=== PATIENT | female | born 1985 | race Caucasian/White ===

== ENCOUNTER 2017-03-18 19:03 | Emergency (ER) | payer OTHER ==
[2017-03-18 19:11] VITALS: BP 122/62; PULSE 71; RESP 16; TEMP 97.6; O2SAT 100
--- NOTE | 2017-03-18 19:39 | ED PDOC ---
HPI: Female Pain Time Seen by Provider: 03/18/17 19:38 Chief Complaint (Nursing): Abdominal Pain Chief Complaint (Provider): dysuria History Per: Patient History/Exam Limitations: no limitations Onset/Duration Of Symptoms: Days (7) Current Symptoms Are (Timing): Still Present Quality Of Discomfort: Cramping Associated Symptoms: Urinary Symptoms (freq/urgency/back pain.suprapubic cramping. ). denies: Fever, Chills, Nausea, Vomiting, Diarrhea, Loss Of Appetite, Back Pain, Chest Pain, Constipation Abnormal Vaginal Bleeding: No Past Medical History Reviewed: Historical Data, Nursing Documentation, Vital Signs Vital Signs: Last Vital Signs Temp 97.6 F 03/18/17 19:09 Pulse 71 03/18/17 19:09 Resp 16 03/18/17 19:09 BP 122/62 03/18/17 19:09 Pulse Ox 100 03/18/17 19:09 - Medical History PMH: Denies: Chronic Kidney Disease - Family History Family History: States: Unknown Family Hx - Immunization History Hx Tetanus Toxoid Vaccination: No Hx Influenza Vaccination: No Hx Pneumococcal Vaccination: No - Home Medications Home Medications: Ambulatory Orders Medication Instructions Recorded Tri-Linyah 35 Mcg-0.25 mg 1 tab PO DAILY 03/17/15 metroNIDAZOLE [Flagyl] 500 mg PO BID #14 tab 03/17/15 Ciprofloxacin [Cipro] 250 mg PO BID #6 tab 03/18/17 - Allergies Allergies/Adverse Reactions: Allergies Allergy/AdvReac Type Severity Reaction Status Date / Time No Known Allergies Allergy Verified 11/14/13 08:40 Review of Systems ROS Statement: Except As Marked, All Systems Reviewed And Found Negative Constitutional: Negative for: Fever, Chills Physical Exam - Reviewed Nursing Documentation Reviewed: Yes Vital Signs Reviewed: Yes - Physical Exam Appears: Positive for: Well, Non-toxic, No Acute Distress Skin: Positive for: Normal Color, Warm, DRY Cardiovascular/Chest: Positive for: Regular Rate, Rhythm Respiratory: Positive for: CNT, Normal Breath Sounds Gastrointestinal/Abdominal: Positive for: Bowel Sounds, Soft, Tenderness ( suprapubic) Back: Positive for: Normal Inspection. Negative for: L CVA Tenderness, R CVA Tenderness Extremity: Positive for: Normal ROM Neurologic/Psych: Positive for: Alert, Oriented - Laboratory Results Urine dip results: Negative for: Leukocyte Esterase, Blood, Nitrate, Ketones, Glucose, Bilirubin, Protein - ECG O2 Sat by Pulse Oximetry: 100 Medical Decision Making Medical Decision Making: pt with symptomatic uti will tx with cipro and f/u with obgyn Disposition - Clinical Impression Clinical Impression: Urinary tract infection - Patient ED Disposition Is Patient to be Admitted: No Counseled Patient/Family Regarding: Studies Performed, Diagnosis, Need For Followup, Rx Given - Disposition Disposition: Routine/Home Disposition Time: 19:58 Condition: STABLE Prescriptions: Ciprofloxacin [Cipro] 250 mg PO BID #6 tab Instructions: Urinary Tract Infection in Women (ED) Forms: [employer] (Pashto)
== END 2017-03-18 19:57 | disposition home or self-care (01) ==
LOC: H.ER 19:03
DX: N39.0 Urinary tract infection, site not specified (principal)

== ENCOUNTER 2017-10-08 09:36 | Emergency (ER) | payer OTHER ==
[2017-10-08 09:38] VITALS: BMI 36.0
[2017-10-08] MEDS: Sodium Chloride 0.9% 1,000 ML IV STA (10:10)
--- NOTE | 2017-10-08 10:13 | ED PDOC ---
HPI: Abdomen Time Seen by Provider: 10/08/17 09:47 Chief Complaint (Nursing): Abdominal Pain Chief Complaint (Provider): Suprapubic pain on/off for 6 months History Per: Patient History/Exam Limitations: no limitations Onset/Duration Of Symptoms: Days Outside of [place] travel?: No Current Symptoms Are (Timing): Still Present Additional Complaint(s): 32 yo female with no medical problems presents with lower abdominal pain on/off for 6 months. Pt reports pain lasting a few days every 2 months. 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 Pt states she has no change in bowel or N/v. Pt took motrin but states it does not help. Past Medical History Reviewed: Historical Data, Nursing Documentation, Vital Signs Vital Signs: Last Vital Signs Temp 98.4 F 10/08/17 09:39 Pulse 67 10/08/17 09:39 Resp 16 10/08/17 09:39 BP 106/68 10/08/17 09:39 Pulse Ox 99 10/08/17 10:34 - Medical History PMH: No Chronic Diseases Denies: Chronic Kidney Disease - Surgical History Surgical History: No Surg Hx - Family History Family History: States: Unknown Family Hx - Living Arrangements Living Arrangements: With Family - Social History Current smoker - smoking cessation education provided: No - Immunization History Hx Tetanus Toxoid Vaccination: No Hx Influenza Vaccination: No Hx Pneumococcal Vaccination: No - Home Medications Home Medications: Ambulatory Orders Medication Instructions Recorded Tri-Linyah 35 Mcg-0.25 mg 1 tab PO DAILY 03/17/15 metroNIDAZOLE [Flagyl] 500 mg PO BID #14 tab 03/17/15 Ciprofloxacin [Cipro] 250 mg PO BID #6 tab 03/18/17 Ciprofloxacin [Cipro] 500 mg PO BID #10 tab 10/08/17 - Allergies Allergies/Adverse Reactions: Allergies Allergy/AdvReac Type Severity Reaction Status Date / Time No Known Allergies Allergy Verified 11/14/13 08:40 Review of Systems ROS Statement: Except As Marked, All Systems Reviewed And Found Negative Constitutional: Negative for: Fever, Chills Gastrointestinal: Positive for: Abdominal Pain. Negative for: Nausea, Vomiting , Diarrhea Physical Exam - Reviewed Nursing Documentation Reviewed: Yes Vital Signs Reviewed: Yes - Physical Exam Appears: Positive for: Well, Non-toxic, No Acute Distress Head Exam: Positive for: ATRAUMATIC, NORMAL INSPECTION, NORMOCEPHALIC Skin: Positive for: Normal Color, Warm, DRY Eye Exam: Positive for: Normal appearance ENT: Positive for: Normal ENT Inspection Neck: Positive for: Normal, Painless ROM Cardiovascular/Chest: Positive for: Regular Rate, Rhythm Respiratory: Positive for: CNT, Normal Breath Sounds Gastrointestinal/Abdominal: Positive for: Normal Exam, Bowel Sounds, Soft. Negative for: Tenderness Back: Positive for: Normal Inspection Extremity: Positive for: Normal ROM Neurologic/Psych: Positive for: Alert, Oriented - Laboratory Results Result Diagrams: 10/08/17 10:10 10/08/17 10:10 - ECG O2 Sat by Pulse Oximetry: 99 Medical Decision Making Medical Decision Making: Small leuks on urine dip in ER. Order placed for U/A and urine culture. Labs normal. (+) leuks, blood in urine Disposition - Clinical Impression Clinical Impression: Urinary tract infection - Patient ED Disposition Is Patient to be Admitted: No Counseled Patient/Family Regarding: Need For Followup, Rx Given - Disposition Disposition: Routine/Home Disposition Time: 11:06 Condition: GOOD Prescriptions: Ciprofloxacin [Cipro] 500 mg PO BID #10 tab Instructions: Urinary Tract Infection, Adult (DC) Forms: [employer] (Omani), [facility] ED School/Work Excuse
[2017-10-08 10:35] LABS: ALB/GLOB RATIO 1.1 (1.0-2.1); ALBUMIN 3.9 g/dL (3.5-5.0); ALT/SGPT 36 U/L (9-52); AST/SGOT 24 U/L (14-36); BLOOD UREA NITROGEN 11 mg/dl (7-17); CALCIUM 8.7 mg/dL (8.4-10.2); GFR AFRICAN-AMERICAN > 60; GFR NON-AFRICAN AMERICAN > 60
[2017-10-08 10:37] LABS: HEMOGLOBIN 12.5 g/dL (12.0-16.0); MEAN CELL VOLUME 92.3 fl (81.0-99.0); MEAN CORPUSCULAR HGB CONC 32.5 g/dL (33.0-37.0); RBC 4.17 Mil/uL (3.80-5.20); WHITE BLOOD COUNT 7.3 K/uL (4.8-10.8)
[2017-10-08 10:57] LABS: SQUAMOUS EPITHIAL 5 /hpf (0-5); URINE BILIRUBIN NEGATIVE (NEGATIVE); URINE BLOOD NEGATIVE (NEGATIVE); URINE CLARITY CLOUDY (Clear); URINE COLOR YELLOW (YELLOW); URINE GLUCOSE (UA) NEG (Normal); URINE LEUKOCYTE ESTERASE MOD Leu/uL (Negative); URINE NITRATE NEGATIVE (NEGATIVE); URINE PROTEIN 30 mg/dL (NEGATIVE)
[2017-10-08 11:20] VITALS: BP 120/70; PULSE 74; RESP 20; TEMP 98.6; O2SAT 98
== END 2017-10-08 11:21 | disposition home or self-care (01) ==
LOC: H.ER 09:36
DX: N39.0 Urinary tract infection, site not specified (principal)
CPT/HCPCS: 80053; 81003; 85027; 87086; 87491; 87591; 96360; 99283; J7040

== ENCOUNTER 2018-10-22 19:27 | Emergency (ER) | payer OTHER ==
[2018-10-22 19:27] VITALS: BMI 36.0
[2018-10-22 20:00] VITALS: RESP 16; TEMP 98.5
[2018-10-22] MEDS ORDERED: Sodium Chloride 0.9% 1,000 ML IV STA (20:22)
[2018-10-22 20:54] LABS: BASO # 0.1 K/uL (0.0-0.2); BASO % 0.8 % (0.0-2.0); EOS # 0.1 K/uL (0.0-0.7); LYMPH # 2.5 K/uL (1.0-4.3); LYMPH % 28.9 % (20.0-40.0); MEAN CELL VOLUME 90.2 fl (81.0-99.0); MEAN CORPUSCULAR HEMOGLOBIN 29.8 pg (27.0-31.0); MEAN PLATELET VOLUME 10.1 fl (7.2-11.7); MONO # 0.6 K/uL (0.0-0.8); MONO % 7.1 % (0.0-10.0); NEUT # 5.4 K/uL (1.8-7.0); NEUT % 62.2 % (50.0-75.0); RBC 4.03 Mil/uL (3.80-5.20); RED CELL DISTRIBUTION WIDTH 12.8 % (11.5-14.5); WHITE BLOOD COUNT 8.7 K/uL (4.8-10.8)
--- NOTE | 2018-10-22 21:09 | ED PDOC ---
HPI: Abdomen Time Seen by Provider: 10/22/18 20:01 Chief Complaint (Nursing): Abdominal Pain Chief Complaint (Provider): Abdominal Pain History Per: Patient History/Exam Limitations: no limitations (x) Onset/Duration Of Symptoms: Days (x 5) Current Symptoms Are (Timing): Still Present Location Of Pain/Discomfort: Diffuse Quality Of Discomfort: "Pain" Associated Symptoms: Other (bloating) Additional Complaint(s): 33 year old female with no significant medical history presents to the ED with a bdominal pain associated with nausea, poor appetite and bloating for five days. She reports developing satiety very earlier when she attempts to eat and has been forcing herself to finish meals. Denies vomiting, diarrhea and fever. PMD: none provided Past Medical History Reviewed: Historical Data, Nursing Documentation, Vital Signs Vital Signs: Last Vital Signs Temp 98.5 F 10/22/18 19:56 Pulse 73 10/22/18 19:56 Resp 16 10/22/18 19:56 BP 125/80 10/22/18 19:56 Pulse Ox 99 10/22/18 19:56 - Medical History PMH: No Chronic Diseases Denies: Chronic Kidney Disease - Surgical History Surgical History: No Surg Hx - Family History Family History: States: Unknown Family Hx - Social History Current smoker - smoking cessation education provided: No Alcohol: None Drugs: Denies - Immunization History Hx Tetanus Toxoid Vaccination: No Hx Influenza Vaccination: No Hx Pneumococcal Vaccination: No - Home Medications Home Medications: Ambulatory Orders Medication Instructions Recorded Ciprofloxacin [Cipro] 1 tab PO BID #14 tab 08/14/18 - Allergies Allergies/Adverse Reactions: Allergies Allergy/AdvReac Type Severity Reaction Status Date / Time No Known Allergies Allergy Verified 08/14/18 09:34 Review of Systems ROS Statement: Except As Marked, All Systems Reviewed And Found Negative Constitutional: Negative for: Fever Gastrointestinal: Positive for: Nausea, Abdominal Pain, Other (abdominal bloating). Negative for: Vomiting, Diarrhea Physical Exam - Reviewed Nursing Documentation Reviewed: Yes Vital Signs Reviewed: Yes - Physical Exam Appears: Positive for: No Acute Distress (patient is obese), Uncomfortable Head Exam: Positive for: ATRAUMATIC, NORMAL INSPECTION, NORMOCEPHALIC Skin: Positive for: Normal Color, Warm, Dry Eye Exam: Positive for: EOMI, Normal appearance, PERRL Neck: Positive for: Normal, Painless ROM, Supple Cardiovascular/Chest: Positive for: Regular Rate, Rhythm. Negative for: Murmur Respiratory: Positive for: Normal Breath Sounds. Negative for: Wheezing, Respiratory Distress Gastrointestinal/Abdominal: Positive for: Soft, Tenderness (RUQ and epigastric tenderness). Negative for: Mass, Guarding, Rebound Back: Positive for: Normal Inspection. Negative for: L CVA Tenderness, R CVA Tenderness Extremity: Positive for: Normal ROM (x 4). Negative for: Deformity Neurological/Psych: Positive for: Awake, Alert, Normal Tone. Negative for: Motor/Sensory Deficits - Laboratory Results Result Diagrams: 10/22/18 20:47 10/22/18 20:47 - ECG O2 Sat by Pulse Oximetry: 99 (RA) Pulse Ox Interpretation: Normal Medical Decision Making Medical Decision Makin:22 Impression: 33 year old female with epigastric and RUQ pain Initial Plan: --Beta-HCG --CMP --CBC --Lipase --Urine preg --Urine dip --NS IV 1,000 mls --Pepcid 20 mg IVP --Toradol 30 mg IV --Zofran 4 mg IV --Abdomen US --UA 22:33 Abdomen US FINDINGS: LIVER: Within normal limits in size and echogenicity. No mass. GALLBLADDER: The gallbladder appears within normal limits. No gallbladder wall thickening or pericholecystic fluid. COMMON BILE DUCT: Within normal limits in size. PANCREAS: The visualized pancreas appears within normal limits. The distal pancreas is obscured by bowel gas. RIGHT KIDNEY: Unremarkable. Normal renal contours. No renal mass or calculus. No hydronephrosis. IMPRESSION: Unremarkable right upper quadrant ultrasound. 22:34 Labs reviewed and reveal positive result. Patient was made aware and informed that she was given Toradol which is contraindicated. However, notified that there is minimal risk due to single dosage. Will obtain OB transvaginal US. 00:13 Transvaginal US FINDINGS: GESTATION: See below. UTERUS: Uterus measures 7.8 x 5.7 x 6.3 cm and appears retroverted. CERVIX: Cervix measures 3.1 cm in length and appears closed. OVARIES: Unremarkable. No mass. FREE FLUID: No free fluid. MISCELLANEOUS: A gestational sac is present. Mean sac diameter measures 1.3 cm, compatible with an estimated ultrasound age of 5.4 weeks. A yolk sac is present. A pole is present. [place] rump length measures 0.2 cm compatible with an estimated ultrasound age of 5.5 weeks. heart motion is observed at 101 beats per minute. Right ovary measures 2.5 x 1.9 x 2.7 cm. Right ovary demonstrates a corpus luteum cyst measuring 1.1 cm. Left ovary measures 2.8 x 1.3 x 2.8 cm. Both ovaries demonstrate normal Doppler waveforms. IMPRESSION: 1. Single live intrauterine gestation of approximately 5.5 weeks. heart motion observed as described. 2. Additional findings as described above. 0038 Labs reviewed and reveal no significant abnormalities. US findings are as above. Diagnosis is abdominal pain in . Follow up with OB-scraper hand. Scribe Attestation: Documented by Taylor Castellon, acting as a scribe for Jose Santiago MD. Provider Scribe Attestation: All medical record entries made by the Scribe were at my direction and personally dictated by me. I have reviewed the chart and agree that the record accurately reflects my personal performance of the history, physical exam, medical decision making, and the department course for this patient. I have also personally directed, reviewed, and agree with the discharge instructions and disposition. Disposition - Clinical Impression Clinical Impression: Abdominal pain during - Patient ED Disposition Is Patient to be Admitted: No - Disposition Disposition: Routine/Home Disposition Time: 00:38 Condition: STABLE Instructions: Stomach Pain in Early Forms: [employer] (Azeri)
[2018-10-22 21:13] LABS: ALB/GLOB RATIO 1.2 (1.0-2.1); ALBUMIN 3.9 g/dL (3.5-5.0); ALT/SGPT 22 U/L (9-52); AST/SGOT 17 U/L (14-36); BLOOD UREA NITROGEN 11 mg/dl (7-17); CALCIUM 9.2 mg/dL (8.4-10.2); GFR NON-AFRICAN AMERICAN > 60; LIPASE 80 U/L (23-300)
[2018-10-22 21:21] LABS: SQUAMOUS EPITHIAL 7 /hpf (0-5); URINE BACTERIA RARE (<OCC); URINE BILIRUBIN NEGATIVE (NEGATIVE); URINE BLOOD NEGATIVE (NEGATIVE); URINE CLARITY CLOUDY (Clear); URINE COLOR YELLOW (YELLOW); URINE GLUCOSE (UA) NEG (NEGATIVE); URINE LEUKOCYTE ESTERASE MOD Leu/uL (Negative); URINE PROTEIN 30 mg/dL (NEGATIVE)
[2018-10-23 00:55] VITALS: BP 100/68; PULSE 76; O2SAT 98
--- NOTE | 2018-10-23 10:00 | US ---
Date of service: 10/22/2018 HISTORY: RUQ pain COMPARISON: None. TECHNIQUE: Sonographic evaluation of the right upper quadrant of the abdomen. FINDINGS: LIVER: Measures 15.4 cm in length. Normal echogenicity of the liver parenchyma. No mass. No intrahepatic bile duct dilatation. GALLBLADDER: Unremarkable. No gallstones. COMMON BILE DUCT: Measures 4.2 mm. No stones. No dilatation. PANCREAS: Unremarkable as visualized. No mass. No ductal dilatation. RIGHT KIDNEY: Measures 10.5 x 6.0 x 4.5 cm in length. Normal echogenicity. No calculus, mass, or hydronephrosis. AORTA: No aneurysmal dilatation. IVC: Unremarkable. OTHER FINDINGS: None . IMPRESSION: Normal exam Concordant results (preliminary interpretation) provided by [facility].
--- NOTE | 2018-10-23 11:34 | US ---
Date of service: 10/22/2018 PROCEDURE: OB Pelvic Ultrasound HISTORY: abd pain COMPARISON: None available. FINDINGS: UTERUS: Single Live intrauterine gestation. CRL measures 0.2 cm equivalent to 5 weeks and 5 days of gestational age. Gestational sac diameter measures 1.3 cm equivalent to 5 weeks and 4 days of gestational age. cardiac activity is documented. age (Ultrasound estimated): 5 weeks and 5 days Date of delivery (Ultrasound estimated) : 06/19/2019 Heart rate: 101 bpm. Divya-gestational hemorrhage: None. Uterus measures 7.8 x 5.7 x 6.3 cm. No mass CERVIX: Long and closed. No cervical abnormality seen. RIGHT OVARY: Measures 2.5 x 1.9 x 2.7 cm. No mass. Normal flow. LEFT OVARY: Measures 2.8 x 1.3 x 2.8 cm. No mass. Normal flow. FREE FLUID: None. OTHER FINDINGS: None. IMPRESSION: Single live intrauterine gestational sac with mean gestational age of 5 weeks and 5 days. The estimated date of delivery by ultrasound is 06/19/2019.
== END 2018-10-23 00:55 | disposition home or self-care (01) ==
LOC: H.ER 19:27
DX: O26.891 Other specified pregnancy related conditions, first trimester (principal); Z3A.01 Less than 8 weeks gestation of pregnancy
CPT/HCPCS: 76705; 76817; 80053; 81003; 83690; 84702; 85025; 96360; J1885; J2405; J7030

== ENCOUNTER 2018-11-30 13:39 | Emergency (ER) | payer OTHER ==
[2018-11-30 13:45] VITALS: RESP 16; O2SAT 99; BMI 34.7
--- NOTE | 2018-11-30 14:04 | ED PDOC ---
HPI: Female Pain Time Seen by Provider: 11/30/18 13:50 Chief Complaint (Nursing): Abdominal Pain History Per: Patient Onset/Duration Of Symptoms: Days (2) Current Symptoms Are (Timing): Still Present Severity: Mild Quality Of Discomfort: Cramping Associated Symptoms: denies: Fever, Nausea, Vomiting, Diarrhea, Urinary Symptoms Alleviating Factors: None Additional Complaint(s): Lower abdominal and low back pain x 2 days. Denies vaginal bleeding. Denies dysuria or frequency. Approx 11 weeks prenant Abnormal Vaginal Bleeding: No : 4 Para: 2 Miscarriage: 1 Past Medical History Vital Signs: Last Vital Signs Temp 98.8 F 11/30/18 13:44 Pulse 83 11/30/18 13:44 Resp 16 11/30/18 13:44 BP 103/64 11/30/18 13:44 Pulse Ox 99 11/30/18 13:44 - Medical History PMH: No Chronic Diseases Denies: Chronic Kidney Disease - Family History Family History: States: Unknown Family Hx - Immunization History Hx Tetanus Toxoid Vaccination: No Hx Influenza Vaccination: No Hx Pneumococcal Vaccination: No - Home Medications Home Medications: Ambulatory Orders Medication Instructions Recorded Ciprofloxacin [Cipro] 1 tab PO BID #14 tab 08/14/18 Nitrofurantoin Macrocrystals 100 mg PO BID #14 cap 11/30/18 [Macrobid] - Allergies Allergies/Adverse Reactions: Allergies Allergy/AdvReac Type Severity Reaction Status Date / Time No Known Allergies Allergy Verified 08/14/18 09:34 Review of Systems Constitutional: Negative for: Fever Gastrointestinal: Positive for: Abdominal Pain. Negative for: Nausea, Vomiting, Diarrhea Genitourinary Female: Negative for: Dysuria, Frequency, Vaginal Bleeding Musculoskeletal: Negative for: Back Pain Physical Exam - Physical Exam Appears: Positive for: Non-toxic, No Acute Distress Skin: Positive for: Normal Color, Warm, DRY Gastrointestinal/Abdominal: Positive for: Bowel Sounds, Soft. Negative for: Tenderness Pelvic Exam: Positive for: External Exam Normal, No Cerv. Motion Tender, No Masses. Negative for: Blood, Tender Adnexa, Tender Uterus - Laboratory Results Result Diagrams: 11/30/18 14:22 - ECG O2 Sat by Pulse Oximetry: 99 Disposition - Clinical Impression Clinical Impression: Urinary tract infection, Abdominal pain during - Patient ED Disposition Is Patient to be Admitted: No Counseled Patient/Family Regarding: Studies Performed, Diagnosis, Need For Followup, Rx Given - Disposition [facility] Disposition: Routine/Home Disposition Time: 17:10 Condition: FAIR Prescriptions: Nitrofurantoin Macrocrystals [Macrobid] 100 mg PO BID #14 cap Instructions: Urinary Tract Infections in Adults, Stomach Pain in Early Forms: [employer] (Gabonese), [facility] ED School/Work Excuse
[2018-11-30 14:30] LABS: BASO % 0.3 % (0.0-2.0); EOS # 0.1 K/uL (0.0-0.7); EOS % 0.9 % (0.0-4.0); HEMOGLOBIN 12.2 g/dL (12.0-16.0); LYMPH % 20.1 % (20.0-40.0); MEAN CELL VOLUME 89.4 fl (81.0-99.0); MEAN CORPUSCULAR HEMOGLOBIN 30.4 pg (27.0-31.0); MEAN PLATELET VOLUME 9.5 fl (7.2-11.7); MONO # 0.7 K/uL (0.0-0.8); MONO % 6.9 % (0.0-10.0); NEUT % 71.8 % (50.0-75.0); RBC 4.01 Mil/uL (3.80-5.20); RED CELL DISTRIBUTION WIDTH 12.7 % (11.5-14.5); WHITE BLOOD COUNT 9.8 K/uL (4.8-10.8)
[2018-11-30 14:33] LABS: SQUAMOUS EPITHIAL 9 /hpf (0-5); URINE BACTERIA OCC (<OCC); URINE BILIRUBIN NEGATIVE (NEGATIVE); URINE BLOOD NEGATIVE (NEGATIVE); URINE CLARITY CLOUDY (Clear); URINE COLOR AMBER (YELLOW); URINE GLUCOSE (UA) NEG (NEGATIVE); URINE LEUKOCYTE ESTERASE MOD Leu/uL (Negative); URINE PROTEIN 30 mg/dL (NEGATIVE)
--- NOTE | 2018-11-30 16:54 | US ---
Date of service: 11/30/2018 PROCEDURE: OB Pelvic Ultrasound HISTORY: Lower pelvic pain, LMP: 09/07/2018 COMPARISON: None available. FINDINGS: UTERUS: Gestational sac: Single live intrauterine gestation is identified. Estimated crown-rump length is 3.8 cm.. Heart rate: 168 bpm. age (Ultrasound estimated): 10 weeks and 1 day Divya-gestational hemorrhage: None. Date of delivery (Ultrasound estimated) : 06/27/2019 Uterus measures 14.4 x 7.6 x 6.2 cm. Normal in size and appearance. CERVIX: Measures 3.2 cm. Long and closed. No cervical abnormality seen. RIGHT OVARY: Measures 1.9 x 1.4 x 1.3 cm. No mass lesion. Normal flow. LEFT OVARY: Measures 1.7 x 1 x 2 cm. No solid mass. Normal flow. FREE FLUID: None. OTHER FINDINGS: None. IMPRESSION: Single live intrauterine gestation with an estimated gestational age of 10 weeks and 1 day.
[2018-11-30 17:19] VITALS: BP 116/62; PULSE 77; TEMP 97.8
== END 2018-11-30 17:15 | disposition home or self-care (01) ==
LOC: H.ER 13:39
DX: O23.41 Unspecified infection of urinary tract in pregnancy, first trimester (principal); Z3A.10 10 weeks gestation of pregnancy

== ENCOUNTER 2019-01-07 19:24 | Emergency (ER) | payer OTHER ==
[2019-01-07 20:04] VITALS: BMI 53.6
[2019-01-07 20:17] LABS: SQUAMOUS EPITHIAL 3 /hpf (0-5); URINE BACTERIA RARE (<OCC); URINE BILIRUBIN NEGATIVE (NEGATIVE); URINE BLOOD NEGATIVE (NEGATIVE); URINE CLARITY SLIGHTY-CLOUDY (Clear); URINE COLOR YELLOW (YELLOW); URINE GLUCOSE (UA) NEG (NEGATIVE); URINE LEUKOCYTE ESTERASE MOD Leu/uL (Negative); URINE PROTEIN NEGATIVE (NEGATIVE); URINE UROBILINOGEN 0.2-1.0 mg/dL (0.2-1.0)
--- NOTE | 2019-01-08 07:14 | OBDCSUM ---
Datetime: 01/07/2019 20:51 Discharged to, Provider: Home Follow up at, Provider: chetan Covarrubias Instr Activity: Normal activity Disch Instr Diet: Regular Discharge Time: 01/07/2019 20:53 Follow up in weeks, Provider: call jairo for early appointment Disch Referrals: None Disch Activity Restrictions: No lifting; Minimize stair-climbing; No sexual activity; Nothing in vag osvaldo - [place], tampons, douche Discharge Comment, Provider: She has appt in 2w at [facility] Discharge Diagnosis Prov Other: UTI
--- NOTE | 2019-01-08 07:14 | OBHP ---
Datetime: 01/07/2019 20:29 IP Adm Impression: , intrauterine ; No Active Labor; Intact Membranes IP Admit Plan: Observation/Evaluation; Discharge home Admit Comment, IP Provider: 33 y/o , 15.6 weeks based on LMP with [facility] 06/25/19 presents to OB ED with lower abdominal discomfort. Discomfort and pain started yesterday afternoon, 4/10 intermitten t which aggravated by standing and mildly alleviated by laying down. Reports frequency. Denies urgenc y or dysuria. Denies any VB, LOF, fever, chills. Denies any other new complains. Patient has H/O recu rrent UTI in the past. care: Enmanuel Coppola PMHx; Denies PSHx: Denies Allergies: Latex Rash Meds: PNVs F/H: Denies Social Hx: Denies smoking/drugs alcohol PE: Gen: NAD Chest: RRR, S1S2 present Lungs: CTAB Abdomen: Suprapubic tenderness, No CVA on back, ABd soft, NT, ND, BS+ Ext: No pedal edema SSE: No active bleeding noted, cervix close. A/P: 33 y/o , 15.6 weeks based on LMP with [facility] 06/25/19 with lower abdominal discomfort. - UA stat showed moderate leukocyte estrase. - Encourage oral hydration UA consistent with UTI. Will send Urine C _S for further evaluation. Patient to be discharged on M acrobid 100 mg BID x 7 days. patient to F/u with Enmanuel Coppola for follow up after completion of ABx c ourse. All questions answered. PTL precaution given. patient verbalized understanding. Case discussed with Dr. Jeremy pelayo, PGY1 OB Hospitalist on-call : Pt seen and examined with PGY1...agree with note. CHARLES AGUIAR AdmitDate IP: 15.6 Vital Signs Provider: Reviewed; Within Normal Limits IP Chief Complaint: Signs/symptoms UTI; Maternal discomfort Dilatation, Provider: Close
[2019-01-08 11:12] VITALS: BP 107/68; PULSE 76; O2SAT 100
== END 2019-01-07 20:56 | disposition home or self-care (01) ==
LOC: H.EROB2 19:24
DX: O26.92 Pregnancy related conditions, unspecified, second trimester (principal); R10.2 Pelvic and perineal pain; Z3A.15 15 weeks gestation of pregnancy